=== PATIENT | male | born 1935 | race Caucasian/White ===

== ENCOUNTER → 2016-09-05 | Outpatient (CLI) | payer MEDICARE ==
[~2016-09-05] MED LIST: ASCO1TAB5 PO; GLUC1TAB71 PO; IOHEXOL 180 MG/ML 10 ML VIAL. ONE; OLME20TA19 PO; PSYL0.5215 PO; SIMV20TA3 PO; TAMS0.4C2 PO; methylPREDNISolone ACETATE 40 MG/ML VIAL. ONE; methylPREDNISolone ACETATE 80 MG/ML VIAL. ONE
--- NOTE | 2016-09-06 03:56 | PAIN ---
DATE OF SERVICE: 09/05/2016 INITIAL CONSULTATION CHIEF COMPLAINT: Neck and bilateral shoulder and upper extremity pain. HISTORY OF PRESENT ILLNESS: This is an 81-year-old male who presents with history of pain in the neck and upper shoulders and extremities for about 4 months, getting worse. The patient reports it is not a result of any specific injury or accident that he is aware of. This did occur suddenly in 04/2016, but without any injury. The patient reports it awakens him from sleep several times at night. It does not affect his bowel or bladder control or his ability to walk, but is significantly painful, rated as an 8 on a scale of 10 currently. The patient reports it radiates into the base of the neck and into the shoulders, mostly posteriorly and superiorly into the bilateral shoulders and arms, into the upper aspect of the arms, mostly lateral and posteriorly. It is a constant and aching pain with radiating and shooting pain as well. The patient has had no current physical therapies or other modalities, treatments or chiropractic manipulations. He is doing some exercises on his own, trying to keep his shoulder loose at home, but it is not decreasing the pain very much. The patient has tried Advil, which decreased the pain by only about 10%. The patient reports his disability rating from 0 to 10, 10 being the worst, is about a 5 in all categories, life support activities, self-care, social activities, sexual behavior, occupation, family and home responsibilities and recreation and social activity. 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 No lateralizing disk protrusions or intrinsic cord signal changes are seen. C4-C5 shows mild posterior ridging and spurring. C5-C6 shows disk space narrowing with anterior spurring noted as well with left-sided neural foraminal narrowing. C6-C7 shows [id number] posterior ridging without significant neural foraminal narrowing. PAST MEDICAL HISTORY: Shows history of hypertension, cataracts, chronic lymphocytic leukemia, Rider's esophagus, difficulty urinating, arthritis. PAST SURGICAL HISTORY: Previous surgeries include bilateral cataract extractions, lumbar surgery in 1996 and kidney stone extraction in 1987 and previous tonsillectomy as a child. FAMILY HISTORY: Significant for heart disease and cancers. SOCIAL HISTORY: The patient does not drink alcohol, does not smoke. He is and lives with his spouse. He is currently retired and lives locally in [place], [place]. REVIEW OF SYSTEMS: The patient's review of systems is positive for those items mentioned in the history of present illness. All systems are reviewed and otherwise negative. It is complete, full and well documented on the patient's chart. PHYSICAL EXAMINATION: VITAL SIGNS: Today, the patient's blood pressure is 145/70, pulse 67, respirations 16, temperature is 97.7 degrees Fahrenheit. Height is 5 feet 5 inches, weight is 154 pounds. GENERAL: The patient is awake, alert, oriented, appropriate, has very pleasant demeanor. HEENT: Shows normocephalic and atraumatic. Extraocular movements are intact and symmetrical. Oral cavity shows mucous membranes are moist and pink. Dentition is intact. NECK: Shows anterior throat supple without palpable lymphadenopathy noted. Swallow reflex is symmetrical. CHEST: Shows normal on inspection. Breath sounds are clear to auscultation bilaterally. HEART: Shows S1 and S2 clear. ABDOMEN: Soft, nontender, nondistended. No palpable organomegaly. No new rebound or guarding demonstrated. BACK: Shows spine grossly in the midline with some mild flattening of the lumbar lordotic curvature. Well-healed surgical scars are noted in the lumbar distribution. Cervical paraspinous musculature shows some moderate tenderness with palpation, but is symmetrical on inspection. No radiation of pain is demonstrated. The patient shows good rotational motion of the cervical spine with some minor tenderness with extension, but not with forward flexion. Right and left lateral rotations performed with some mild guarding and slow deliberate motion, but past 45 degrees right and left without significant difficulty or pain reported. EXTREMITIES: Upper extremities showed deep tendon reflexes at 1+ in the biceps and triceps tendons. Motor exam is strong with approximately 4/5 cone examiner strength, biceps and triceps flexion and equal and symmetrical bilaterally. Peripheral pulses are 1+ in the radial distribution bilaterally. No peripheral edema is noted. No clubbing. No cyanosis. Upper extremities are warm and dry to touch, equal in color and appearance. Shoulder shrug is strong and intact without loss of strength on resistance, as is abduction of shoulder to 90 degrees without loss of strength on resistance. IMPRESSION: 1. This is an 81-year-old male with about 4-month history of increasing pain in the base of the neck and shoulders bilaterally and into the upper extremities in a radicular fashion. 2. MRI scan of the cervical spine as noted. 3. Hypertension. 4. Arthritis. 5. History of leukemia. PLAN: Options were discussed with the patient including conservative medical management, physical therapy, interventional techniques and he would like to pursue with interventional techniques. We discussed a cervical epidural steroid injection using description as well as anatomical models to describe the procedure. Risks were then discussed including but not limited to bleeding, infection, possibility of epidural hematoma, subsequent neurologic compromise, dural puncture, headaches, spinal cord and/or nerve damage, side effects of steroid medication and poor results regarding pain control. The patient understands and wishes to proceed. The patient will return to the clinic in approximately 2 weeks for followup. He was counseled as to return appointment, activity level and side effects to be aware of. DIAGNOSES: Cervical radiculopathy with cervical degenerative disk disease and cervical spinal stenosis. PROCEDURE: Cervical epidural steroid injection using C-arm fluoroscopic guidance under sterile prep and drape using local anesthetic. MEDICATIONS INJECTED: A total of 120 mg of Depo-Medrol plus a total of 5 mL of preservative-free normal saline and 2 mL of Isovue for contrast. CONDITION AT DISCHARGE: Stable. The patient tolerated the procedure well and had no complications. OLIVIA MORENO MD DR: LIZA/margie JOB#: [id number] / [id number] JUDITH Sewell MD
== END | disposition home or self-care (01) ==
LOC: PNCL 08:18
PROVIDERS: ATTEND Anesthesiology
DX: M50.10 Cervical disc disorder with radiculopathy, unspecified cervical region (principal); I10 Essential (primary) hypertension; C91.10 Chronic lymphocytic leukemia of B-cell type not having achieved remission; M19.90 Unspecified osteoarthritis, unspecified site; K22.70 Barrett's esophagus without dysplasia; Z98.41 Cataract extraction status, right eye; Z98.42 Cataract extraction status, left eye; Z88.8 Allergy status to other drugs, medicaments and biological substances
CPT/HCPCS: 62321; J1030; J1040

== ENCOUNTER → 2016-09-19 | Outpatient (CLI) | payer MEDICARE | END | disposition home or self-care (01) | LOC: PNCL 09:11 | PROVIDERS: ATTEND Anesthesiology | DX: M50.10 Cervical disc disorder with radiculopathy, unspecified cervical region (principal); M48.02 Spinal stenosis, cervical region; Z88.8 Allergy status to other drugs, medicaments and biological substances | CPT/HCPCS: 62321; J1030; J1040 ==

== ENCOUNTER → 2016-10-03 | Outpatient (CLI) | payer MEDICARE | END | disposition home or self-care (01) | LOC: PNCL 08:42 | PROVIDERS: ATTEND Anesthesiology | DX: M50.10 Cervical disc disorder with radiculopathy, unspecified cervical region (principal); M48.02 Spinal stenosis, cervical region; Z88.8 Allergy status to other drugs, medicaments and biological substances | CPT/HCPCS: 62321; J1030; J1040 ==

== ENCOUNTER → 2018-10-21 | Outpatient (CLI) | payer MEDICARE ==
[~2018-10-21] MED LIST changes: +LEVO25TA4 PO; +LOSA100T14 PO; +OLME20TA17 PO; -OLME20TA19 PO
--- NOTE | 2018-10-22 00:33 | PAIN ---
DATE OF SERVICE: 10/21/2018 PROGRESS NOTE FOR PAIN CLINIC DIAGNOSES: 1. Cervical radiculopathy with cervical spinal stenosis and cervical degenerative disk disease. 2. Lumbar radiculopathy with lumbar degenerative disk disease, post-lumbar laminectomy syndrome. HISTORY OF PRESENT ILLNESS: The patient is an 83-year-old male who returns for followup, last seen in 2017. He did very well with some cervical epidural steroid injection. Reports his pain has not returned. His main complaint now is that he was lifting a bucket of 5 gallons of water about 3 weeks ago and the pain began to become very significant in his low back and his right lower extremity with radiating pain on the right and left, and now the left is the worse; posterior gluteus; posterior lateral thigh; lateral anterior thigh; medial thigh; medial lower leg with numbness into his foot. The patient reports it is severe at times, on and off in intensity, standing, walking, slow walking. As fatigability of his left leg is becoming more significant, the patient has been doing some stretching on his own, has not had any formal therapies at this time, but doing some stretching and working around the house and this is impeding his activities of daily living fairly significantly. The patient reports his pain is 7-8 on a scale of 10 on average, 8 at its worst and a 4 at its least, and is a 7 today. The patient reports no new motor or sensory deficits, no bowel or bladder incontinence. The patient did have MRI scan of the lumbar spine showing L4-L5 partial laminectomy on the left with high-grade left and moderate right foraminal narrowing and L5-S1 shows a likely partial laminectomy on the left with right greater than left high grade foraminal narrowing, exiting nerve roots flattened bilaterally. PHYSICAL EXAMINATION: VITAL SIGNS: The patient's blood pressure 143/59, pulse 63, respirations 18, temperature is 98.2 degrees Fahrenheit and weight is 152 pounds. GENERAL: The patient is awake, alert, oriented, appropriate, very pleasant demeanor. The patient is accompanied by his spouse. HEENT: Head shows normocephalic, atraumatic. Extraocular movements are intact and symmetrical. Oral cavity: Mucous membranes moist and pink. Dentition is intact. NECK: Shows anterior throat supple without palpable lymphadenopathy noted. Swallow reflex symmetrical. CHEST: Shows normal on inspection. Breath sounds clear to auscultation bilaterally. HEART: Shows S1, S2 clear. No murmurs auscultated. ABDOMEN: Soft, nontender, nondistended. No palpable organomegaly is noted. No rebound or guarding demonstrated. BACK: Shows spine grossly in the midline. Flattening of cervical lordotic curvature. There is some increased thoracic kyphosis and flattening of lumbar lordotic curvature with well-healed surgical scar noted. Lumbar paraspinous muscle shows symmetrical on inspection, on palpation shows some moderate tenderness diffusely bilaterally, but only diffusely without radiation in the middle and lower distribution of paraspinous muscles. The patient has good rotational motion of lumbar spine both laterally, as well as extension and flexion without significant difficulty or pain reported. EXTREMITIES: Lower extremities showed deep tendon reflexes 1+ in the patellar and tendo calcaneus tendons. Motor exam is strong with 5/5 dorsiflexion, extension, quadriceps and hamstring flexion equal. Peripheral pulses are 1+ posterior tibia. No peripheral edema is noted bilaterally. Options were discussed with the patient. The patient's old chart was reviewed as his current medication regimen updated. Current review of systems updated today as well. We will proceed with a lumbar epidural steroid injection today with fluoroscopic guidance. Risks were again discussed including, but not limited to bleeding, infection, possibility of epidural hematoma, subsequent neurologic compromise, dural puncture, headaches, spinal cord and/or nerve damage, side effects of steroid medication and poor results regarding pain control. The patient understands and wished to proceed. The patient will return to the clinic in approximately 2 weeks for followup, was counseled on return appointment, activity level and side effects to be aware of. DIAGNOSES: Lumbar radiculopathy with lumbar degenerative disk disease, post-lumbar laminectomy syndrome. PROCEDURES: Lumbar epidural steroid injection, translaminar approach at the L4-L5 level using C-arm fluoroscopic guidance under sterile prep and drape using local anesthetic. MEDICATION INJECTED: A total of 120 mg Depo-Medrol plus 10 mL of preservative-free normal saline and 2 mL of contrast. CONDITION AT DISCHARGE: Stable. The patient tolerated the procedure well, had no complications. OLIVIA MORENO MD DR: LIZA/margie JOB#: [id number] / [id number]
== END ==
LOC: PNCL 10:00
PROVIDERS: ATTEND Anesthesiology
DX: M51.16 Intervertebral disc disorders with radiculopathy, lumbar region (principal); M96.1 Postlaminectomy syndrome, not elsewhere classified; M48.02 Spinal stenosis, cervical region; M50.10 Cervical disc disorder with radiculopathy, unspecified cervical region
CPT/HCPCS: 62323; J1030; J1040; Q9965

== ENCOUNTER → 2018-11-25 | Outpatient (CLI) | payer MEDICARE ==
--- NOTE | 2018-11-26 02:54 | PAIN ---
DATE OF SERVICE: 11/25/2018 PROGRESS NOTE FOR PAIN CLINIC DIAGNOSES: 1. Cervical radiculopathy with cervical spinal stenosis and cervical degenerative disk disease. 2. Lumbar radiculopathy with lumbar degenerative disk disease and lumbar post-laminectomy syndrome. HISTORY OF PRESENT ILLNESS: The patient is an 83-year-old male who returns for followup, status post lumbar epidural steroid injection x 1 on 10/21/2018. The patient reports he has very well about 30% improvement in the low back and the legs. He still has some pain in the left lower extremity, posterolateral thigh, lateral anterior thigh, medial thigh. The patient reports he was doing some yard work a few days ago and now has some increased pain in the low back itself which is dull and tight, feels like a drawstring around the waist. It has been worse with walking, standing, changing positions, better with sitting or lying down, does not awaken him from sleep at night. The patient reports initially he was doing much better with distance walking, doing work activities around the house and traveling with greater ease. Now, the pain has returned after some yard work a few days ago as noted. The patient reports his pain on the last week is a 4 on a scale of 10 on average, 4 at its worst and 0 at its least and there are times where he is intermittently without pain completely. The patient reports no new motor or sensory deficits, no new bowel or bladder incontinence or other complaints. PHYSICAL EXAMINATION: VITAL SIGNS: The patient's blood pressure 145/71, pulse 64, respirations 16, temperature is 97.9 degrees Fahrenheit, weight is 152 pounds. GENERAL: The patient is awake, alert, oriented, appropriate, very pleasant demeanor. HEENT: Shows head is normocephalic, atraumatic. Extraocular movements are intact and symmetrical. Oral cavity: Mucous membranes moist and pink. Dentition is intact. NECK: Shows anterior throat is supple without palpable lymphadenopathy noted. Swallow reflex symmetrical. CHEST: Shows normal on inspection. Breath sounds are clear to auscultation bilaterally. HEART: Shows S1, S2 clear. No murmurs auscultated. ABDOMEN: Soft, nontender, nondistended. No palpable organomegaly is noted. No rebound or guarding demonstrated. BACK: Shows spine grossly in the midline, normal-appearing thoracic kyphosis, some minor flattening of lumbar lordotic curvature. Lumbar well-healed surgical scar is noted. Lumbar paraspinous muscle shows symmetrical on inspection, on palpation shows some moderate tenderness diffusely without significant radiation. EXTREMITIES: The patient's lower extremities show deep tendon reflexes at 1+ in the patellar and tendo calcaneus tendons are equal. Motor exam is strong with 5/5 dorsiflexion and extension and symmetrical. Peripheral pulses are 1+. No peripheral edema is noted bilaterally. Options were discussed with the patient. The patient's old chart was reviewed as his current medication regimen updated. Current review of systems updated today as well. We will proceed with a second in the series of lumbar epidural steroid injection today with fluoroscopic guidance. Risks were again discussed including but not limited to bleeding, infection, possibility of epidural hematoma, subsequent neurological compromise, dural puncture, headaches, spinal cord and/or nerve damage, side effects of steroid medication and poor results regarding pain control. The patient understands and wished to proceed. The patient will return to clinic in approximately 2 weeks for followup. He was counseled on return appointment, activity level and side effects to be aware of. DIAGNOSES: Lumbar radiculopathy with lumbar degenerative disk disease and lumbar post-laminectomy syndrome. PROCEDURE: Lumbar epidural steroid injection with translaminar approach at L4-L5 level using C-arm fluoroscopic guidance under sterile prep and drape using local anesthetic. MEDICATION INJECTED: Total of 120 mg of Depo-Medrol plus 10 mL of preservative-free normal saline and 2 mL of contrast. CONDITION AT DISCHARGE: Stable. The patient tolerated the procedure well, had no complications. OLIVIA MORENO MD DR: LIZA/margie JOB#: [id number] / [id number]
== END ==
LOC: PNCL 09:43
PROVIDERS: ATTEND Anesthesiology
DX: M51.16 Intervertebral disc disorders with radiculopathy, lumbar region (principal); M96.1 Postlaminectomy syndrome, not elsewhere classified; M50.10 Cervical disc disorder with radiculopathy, unspecified cervical region
CPT/HCPCS: 62323; J1030; J1040; Q9965

== ENCOUNTER → 2018-12-09 | Outpatient (CLI) | payer MEDICARE ==
--- NOTE | 2018-12-09 22:02 | PAIN ---
DATE OF SERVICE: 12/09/2018 PROGRESS NOTE FOR PAIN CLINIC DIAGNOSES: 1. Lumbar radiculopathy with lumbar degenerative disk disease, post-lumbar laminectomy syndrome. 2. Cervical radiculopathy with cervical spinal stenosis and cervical degenerative disk disease. HISTORY OF PRESENT ILLNESS: The patient is an 83-year-old male who returns for followup status post lumbar epidural steroid injections x 2. The patient reports about 25% overall improvement with pain in the legs and doing much better with the back. He still has some significant pain in the back itself. The patient reports it is a 4 on a scale of 10 at its worst, 4 on average and a 1 at its least, and is a 4 today. The patient reports it is dull and aching in the low back, but again the pain in the legs doing much better. He is increasing his distance walking, doing greater activities at home. He has been helping his as well who has recently had shoulder surgery. The patient reports no new motor or sensory deficits and no new bowel or bladder incontinence. It does not awaken him from sleep at night, generally he sleeps fairly well. PHYSICAL EXAMINATION: VITAL SIGNS: The patient's blood pressure 135/67, pulse 69, respirations 16, temperature 97.7 degrees Fahrenheit, and weight is 149 pounds. GENERAL: The patient is awake, alert, oriented, appropriate, very pleasant demeanor. HEENT: Head shows normocephalic and atraumatic. Extraocular movements are intact and symmetrical. Oral cavity: Mucous membranes are moist and pink. Dentition is intact. NECK: Shows anterior throat is supple. CHEST: Shows normal on inspection. Breath sounds are clear to auscultation bilaterally. HEART: Shows S1 and S2 clear. No murmurs auscultated. ABDOMEN: Soft, nontender, and nondistended. No palpable organomegaly is noted. No rebound or guarding demonstrated. BACK: Shows spine grossly in the midline. Normal appearing thoracic kyphosis, some minor flattening of lumbar lordotic curvature. A well-healed surgical scar noted in the midline. Lumbar paraspinous muscle shows symmetrical on inspection, on palpation shows some moderate tenderness diffusely, but only diffusely without significant radiation. EXTREMITIES: The patient's lower extremities show deep tendon reflexes at 1+ in the patellar and tendo calcaneus tendons. Motor exam is strong with 5/5 dorsiflexion, extension, quadriceps, and hamstring flexion and symmetrical. Peripheral pulses are 1+ posterior tibia. No peripheral edema is noted. Options were discussed with the patient. The patient's old chart was reviewed. His current medication regimen updated. Current review of systems updated today as well. We will proceed with a third lumbar epidural steroid injection today with fluoroscopic guidance. Risks were again discussed including, but not limited to bleeding, infection, possibility of epidural hematoma, subsequent neurologic compromise, dural puncture, headaches, spinal cord and/or nerve damage, side effects of steroid medication, and poor results regarding pain control. The patient understands and wished to proceed. The patient will return to the clinic in approximately 2 weeks for followup. Counseled on return appointment, activity level, and side effects to be aware of. DIAGNOSIS: Lumbar radiculopathy with lumbar degenerative disk disease and lumbar post-laminectomy syndrome. PROCEDURE: Lumbar epidural steroid injection, translaminar approach at the L4-L5 level using C-arm fluoroscopic guidance under sterile prep and drape using local anesthetic. MEDICATION INJECTED: Total of 120 mg Depo-Medrol plus 10 mL of preservative-free normal saline and 2 mL of contrast. CONDITION AT DISCHARGE: Stable. The patient tolerated the procedure well, had no complications. OLIVIA MORENO MD DR: LIZA/margie JOB#: [id number] / [id number]
== END ==
LOC: PNCL 10:34
PROVIDERS: ATTEND Anesthesiology
DX: M51.16 Intervertebral disc disorders with radiculopathy, lumbar region (principal); M96.1 Postlaminectomy syndrome, not elsewhere classified
CPT/HCPCS: 62323; J1030; J1040; Q9965

== ENCOUNTER → 2018-12-23 | Outpatient (CLI) | payer MEDICARE ==
[~2018-12-23] MED LIST changes: -IOHEXOL 180 MG/ML 10 ML VIAL. ONE; -methylPREDNISolone ACETATE 40 MG/ML VIAL. ONE; -methylPREDNISolone ACETATE 80 MG/ML VIAL. ONE
--- NOTE | 2018-12-23 12:40 | PAIN ---
DATE OF SERVICE: 12/23/2018 PROGRESS NOTE FOR PAIN CLINIC DIAGNOSES: 1. Cervical radiculopathy, cervical spinal stenosis, and cervical degenerative disk disease. 2. Lumbar radiculopathy, lumbar degenerative disk disease, and lumbar post-laminectomy syndrome. HISTORY OF PRESENT ILLNESS: The patient is an 83-year-old male who returns for followup status post lumbar epidural steroid injection x 3. The patient reports he did very well with about 100% improvement for the first 3 to 4 days, but then the pain returned fairly significantly, so it was very short-lived. The patient reports he was increasing his activity with greater ease and comfort for the first few days, traveling with greater ease, but the pain has returned now in the low back and the bilateral lower extremities. The patient reports no new motor or sensory deficits, no new bowel or bladder incontinence, but still has significant pain in the low back, especially in the left leg. The patient reports no new motor or sensory deficits, no new bowel or bladder incontinence or other complaints, still significant pain across the back into the lower extremities, described as aching and dull, sharp and shooting. The patient reports it went down into the buttock all the way into the foot, but better with sitting or lying down. He is sleeping well at night. The injection helped better, but only lasted for a few days than the ones prior. The patient reports the pain is a 4 on a scale of 10 at its worst, 3-4 on average and a 2 at its least and is a 3 today. PHYSICAL EXAMINATION: VITAL SIGNS: The patient's blood pressure is 154/71, pulse 59, respirations 18, temperature 97.8 degrees Fahrenheit, weight is 149 pounds. GENERAL: The patient is awake, alert, oriented, appropriate, very pleasant demeanor. HEENT: Shows normocephalic, atraumatic. Extraocular movements are intact and symmetrical. Oral cavity: Mucous membranes moist and pink. Dentition is intact. NECK: Shows anterior throat supple without palpable lymphadenopathy noted. Swallow reflex symmetrical. CHEST: Shows normal on inspection. Breath sounds clear to auscultation bilaterally. HEART: Shows S1, S2 clear. No murmurs auscultated. ABDOMEN: Soft, nontender, nondistended. No palpable organomegaly is noted. No rebound or guarding demonstrated. BACK: Shows spine grossly in the midline. Normal-appearing thoracic kyphosis and minor flattening of lumbar lordotic curvature. Lumbar paraspinous muscle shows symmetrical on inspection, on palpation shows some moderate tenderness diffusely without significant radiation. EXTREMITIES: The patient's lower extremities show deep tendon reflexes at 1+ in the patellar and tendo-calcaneus tendons. Motor exam is 5/5 with dorsiflexion, extension, quadriceps, and hamstring flexion and symmetrical. Peripheral pulses are 1+ posterior tibia. No peripheral edema is noted. Options were discussed with the patient. The patient's old chart was reviewed as his current medication regimen updated. Current review of systems updated today as well. We will hold on any further injections. The patient has had 3 within the last 6 months. The patient is somewhat discouraged that the pain has returned so quickly. He would like to speak with the neurosurgeon. We will have arrangements made to speak with neurosurgeon for opinion. The patient was informed that ____ no surgical indication that a spinal cord stimulator may be a helpful option or alternative. The patient is interested in this and would like to talk to a neurosurgeon first. We will make those arrangements and have the patient return once neurosurgical consultation is obtained. OLIVIA MORENO MD DR: LIZA/margie JOB#: [id number] / [id number]
== END | disposition home or self-care (01) ==
LOC: PNCL 10:52
PROVIDERS: ATTEND Anesthesiology
DX: M50.10 Cervical disc disorder with radiculopathy, unspecified cervical region (principal); M48.02 Spinal stenosis, cervical region; M51.16 Intervertebral disc disorders with radiculopathy, lumbar region; M96.1 Postlaminectomy syndrome, not elsewhere classified
CPT/HCPCS: G0463